=== PATIENT | male | born 1950 | race Caucasian/White ===

== ENCOUNTER 2020-09-07 05:37 | Day surgery (SDC) | payer BC ==
[2020-09-04 10:53] VITALS: BMI 22.1
[2020-09-07] MEDS ORDERED: KETOROLAC TROMETHAMINE 30 MG/1 ML VIAL ONE (10:14)
[2020-09-07] MEDS ORDERED: PROPOFOL 20 ML ONE (10:14)
[2020-09-07] MEDS ORDERED: MIDAZOLAM HCL 2 MG/2 ML SINGLE DOSE VIAL ONE (10:14)
[2020-09-07 12:02] VITALS: BP 115/56; PULSE 68; TEMP 97.7
== END 2020-09-07 12:45 | disposition home or self-care (01) ==
LOC: JASU-SURG 05:37
PROVIDERS: ATTEND Urology
PROC: 0TF4XZZ Fragmentation in Left Kidney Pelvis, External Approach (ICD-10-PCS; principal; 2020-09-07 09:30)
DX: N20.0 Calculus of kidney (principal)

== ENCOUNTER 2022-11-14 04:36 | Day surgery (SDC) | payer OTHER ==
[2022-11-10 17:38] VITALS: BMI 23.3
[2022-11-14] MEDS ORDERED: GLYCOPYRROLATE 0.2 MG/1 ML VIAL ONE (11:43)
[2022-11-14] MEDS ORDERED: PROPOFOL 20 ML ONE (11:43)
[2022-11-14] MEDS ORDERED: LIDOCAINE HCL/PF 2% SDV 5ML VIAL ONE ×2 (11:43→12:39)
[2022-11-14] MEDS ORDERED: MIDAZOLAM HCL 2 MG/2 ML SINGLE DOSE VIAL ONE (11:43)
[2022-11-14] MEDS ORDERED: KETOROLAC TROMETHAMINE 30 MG/1 ML VIAL ONE (12:02)
[2022-11-14] MEDS ORDERED: ONDANSETRON 4 MG/2 ML VIAL ONE (12:02)
[2022-11-14] MEDS ORDERED: DEXAMETHASONE SOD PHOSPHATE 4 MG/1 ML VIAL ONE (12:02)
[2022-11-14] MEDS ORDERED: METOPROLOL TARTRATE 5 MG/5 ML VIAL ONE (12:39)
[2022-11-14] MEDS ORDERED: PROMETHAZINE HCL 25 MG/1 ML VIAL IVPUSH PRN (12:48)
[2022-11-14] MEDS ORDERED: oxyCODONE HCL 5 MG TABLET PO PRN (12:48)
[2022-11-14] MEDS ORDERED: ONDANSETRON 4 MG/2 ML VIAL IVPUSH PRN (12:48)
[2022-11-14] MEDS ORDERED: hydrALAZINE HCL 20 MG/ML VIAL IVPUSH ONE (12:49)
[2022-11-14] MEDS ORDERED: hydrALAZINE HCL 20 MG/ML VIAL ONE (12:52)
[2022-11-14] MEDS ORDERED: LACTATED RINGERS SOLUTION 1,000 ML IV SCH (13:00)
[2022-11-14 14:12] VITALS: RESP 18
[2022-11-14 18:10] VITALS: BP 130/79; PULSE 79; TEMP 97.7
== END 2022-11-14 17:05 | disposition home or self-care (01) ==
LOC: JASU-SURG 04:36
PROVIDERS: ATTEND Urology
PROC: BT14YZZ Fluoroscopy of Kidneys, Ureters and Bladder using Other Contrast (ICD-10-PCS; 2022-11-14)
PROC: 0T7D8ZZ Dilation of Urethra, Via Natural or Artificial Opening Endoscopic (ICD-10-PCS; principal; 2022-11-14 13:30)
DX: N35.912 Unspecified bulbous urethral stricture, male (principal); R31.9 Hematuria, unspecified
CPT/HCPCS: 76000-TC-FY; 94760